=== PATIENT | female | born 1945 | race Caucasian/White ===

== ENCOUNTER 2017-12-18 14:04 | Emergency (ER) | payer OTHER ==
[~2017-12-18] VITALS: Ht 160 cm; Wt 68.0 kg
--- NOTE | ~2017-12-18 | EKG ---
[address] [address] ELECTROCARDIOGRAM REPORT Name: VIRYFERNANDO MATT [id number] Admission: 12/18/17 Attend Phys: Discharge: 12/18/17 Date of : 43 Report #: [id number] THIS REPORT FOR: //name// [facility] ED Test Date: 2017-12-18 Test Time: 14:21:00 Pat Name: FERNANDO BAIRES Department: Room: Gender: F Vice President Education: MZOOK : 1945 Requested By: Bill Kauffman Order Number: [id number] MD: Herson Edward Measurements Intervals [place] Rate: 59 P: 64 [place]: 185 QRS: 71 QRSD: 92 T: 78 QT: 477 QTc: 473 Interpretive Statements Sinus rhythm Compared to ECG 05/07/2015 14:27:49 Sinus bradycardia no longer present Electronically Signed On 12-20-2017 17:29:22 CDT by Herson Edward [email or web address] <ELECTRONICALLY SIGNED> By: Herson Edward MD 12/20/17 1729 1421 142 Herson Edward MD /XU
[~2017-12-18 14:04] MED LIST: ACETAMINOPHEN325 MG PO; ALBUTEROL2.5 MG/0.1 INH; ALBUTEROL2.5 MG/0.5 IH; AMBIEN 5 MG TABL5 M1 PO; AMLODIPINE BESY10 MG PO; ANTACID500 MG PO; ASA81BEC PO; ASPIRIN325 PO; ATIVAN0.5 MG PO; CEPACOL SORE T1 EAC7 PO; COLACE100 MG PO; COZAAR 50 MG TA50 M2 PO; CRESTOR40 MG PO; DEMADEX20 MG PO; DULCOLAX5 MG PO; FENTANYL PA25 MCG/HR TRANSDERM; FERREX 150 FORT1 CAP PO; FLORANEX GRANU1 EACH PO; HYDROCODON-ACE1 EAC5 PO; HYDROCODON-ACE1 EAC7 PO; HYDROCODON-ACE1 EAC8 PO; HYDROCODONE-AP1 EAC6 PO; KLOR-CON M2020 MEQ PO; LASIX 40 MG TAB40 M2 PO; LEVEMIR FL100 UNIT/1 SUBQ; LOMOTIL TABLET1 EACH PO; LOPERAMIDE 2 MG2 M1 PO; LOPERAMIDE2 MG PO; LOSARTAN POTASS50 MG PO; LOSARTAN-HCTZ1 EAC1 PO; MI ACID LIQUID355 ML PO; MILK OF MA400 MG/5 M PO; MIRALAX17 GM PO; MUCINEX600 MG PO; MYLANTA GELCAP1 EACH PO; NORCO 5-325 TA1 EACH PO; NORCO 7.5-3251 EACH PO; NOVOLOG FL100 UNIT/M SUBQ; NOVOLOG100 UNIT/1; NOVOLOG100 UNIT/1 SUBQ; ONDANSETRON HCL4 M3 PO; PACERONE 200 M200 M1 PO; PERCOCET 5-3251 EACH PO; PLAVIX 75 MG TA75 M1 PO; POTASSIUM20 PO; REGLAN 5 MG TAB5 MG PO; SENNA LAXATIVE8.6 MG PO; SENNA8.6 MG PO; TESSALON PERLE100 MG PO; TOPROL XL50 MG PO; TUMS PO; TYLENOL325 MG PO; UNICOMPLEX M TA1 TA1 PO; VANCOCIN 125 M125 M1 PO; VITAMIN D1000 UNI2 PO; ZOFRAN 4 MG ORAL4 MG DISSOLVE; ZOLOFT25 MG PO
[2017-12-18 15:40] LABS: ABSOLUTE NEUTROPHILS 5.8 thou/uL (1.4-8.2); BASOPHILS 0.5 % (0.0-2.0); EOSINOPHILS 0.6 % (0.0-3.0); HEMATOCRIT 37.9 % (37.0-47.0); HEMOGLOBIN 12.6 gm/dL (12.0-15.0); LYMPHOCYTES 9.7 % (24.0-44.0); MCH 30.3 pg (26.0-34.0); MCHC 33.2 g/dL (28.0-37.0); MCV 91.3 fL (80.0-100.0); MONOCYTES 8.3 % (1.0-8.0); PLATELET COUNT 250 thou/uL (150-400); POLYS 80.9 % (36.0-66.0); RBC 4.15 mil/uL (4.20-5.00); WBC 7.2 thou/uL (4.0-11.0)
[2017-12-18 15:49] LABS: CREATININE 1.3 mg/dL (0.6-1.0)
[2017-12-18 15:55] LABS: ALBUMIN 3.5 g/dL (3.4-5.0); TOTAL BILIRUBIN 0.3 mg/dL (<0.1-1.0); TOTAL PROTEIN 6.9 g/dL (6.4-8.2)
[2017-12-18 16:26] LABS: URINE BILIRUBIN NEGATIVE (Negative); URINE BLOOD NEGATIVE (Negative); URINE CLARITY CLEAR; URINE COLOR YELLOW; URINE GLUCOSE-RANDOM* NEGATIVE (Negative); URINE KETONES NEGATIVE (Negative); URINE LEUKOCYTES-REFLEX NEGATIVE (Negative); URINE NITRITE-REFLEX NEGATIVE (Negative); URINE PROTEIN (DIPSTICK) NEGATIVE (Negative); URINE SPECIFIC GRAVITY <= 1.005 (1.005-1.035); URINE UROBILINOGEN 0.2 E.U./dl (0.2-1.0)
== END 2017-12-18 18:28 | disposition home or self-care (01) ==
LOC: ER 14:04
PROVIDERS: Physician Assistant
DX: E11.649 Type 2 diabetes mellitus with hypoglycemia without coma (principal); I48.91 Unspecified atrial fibrillation; E78.5 Hyperlipidemia, unspecified; I11.0 Hypertensive heart disease with heart failure; I50.9 Heart failure, unspecified; I25.10 Atherosclerotic heart disease of native coronary artery without angina pectoris; Z88.5 Allergy status to narcotic agent; Z88.7 Allergy status to serum and vaccine; Z88.8 Allergy status to other drugs, medicaments and biological substances; Z79.4 Long term (current) use of insulin; Z79.899 Other long term (current) drug therapy

== ENCOUNTER 2018-01-08 17:27 | Emergency (ER) | payer OTHER ==
[~2018-01-08] VITALS: Ht 170.2 cm; Wt 81.7 kg
[2018-01-08] MEDS ORDERED: NORCO 5-325 TA1 EACH PO (18:42)
[2018-01-08] MEDS ORDERED: ZPAK PO (18:44)
== END 2018-01-08 19:27 | disposition home or self-care (01) ==
LOC: ER 17:27
DX: S20.212A Contusion of left front wall of thorax, initial encounter (principal); M25.461 Effusion, right knee; S00.83XA Contusion of other part of head, initial encounter; E11.9 Type 2 diabetes mellitus without complications; I48.91 Unspecified atrial fibrillation; F32.9 Major depressive disorder, single episode, unspecified; Z88.7 Allergy status to serum and vaccine; Z91.048 Other nonmedicinal substance allergy status; Z88.5 Allergy status to narcotic agent; Z79.4 Long term (current) use of insulin; W18.39XA Other fall on same level, initial encounter; Y92.89 Other specified places as the place of occurrence of the external cause; Y93.89 Activity, other specified; Y99.8 Other external cause status

== ENCOUNTER 2018-04-02 20:09 | Inpatient (IN) | payer OTHER ==
[~2018-04-02] VITALS: Ht 162.6 cm; Wt 81.3 kg
[~2018-04-02 20:09] MED LIST changes: +ZPAK PO
[2018-04-02 20:11] VITALS: BP 162/110
[2018-04-02 20:33] LABS: ABSOLUTE NEUTROPHILS 6.2 thou/uL (1.4-8.2); BASOPHILS 0.8 % (0.0-2.0); EOSINOPHILS 0.3 % (0.0-3.0); HEMATOCRIT 36.3 % (37.0-47.0); HEMOGLOBIN 12.4 gm/dL (12.0-15.0); MCH 30.7 pg (26.0-34.0); MCV 90.3 fL (80.0-100.0); MONOCYTES 7.4 % (1.0-8.0); PLATELET COUNT 259 thou/uL (150-400); POLYS 80.5 % (36.0-66.0); RBC 4.03 mil/uL (4.20-5.00); RDW 13.5 % (10.5-14.5); WBC 7.7 thou/uL (4.0-11.0)
[2018-04-02 20:40] LABS: ANION GAP 9 mmol/L (7-16); BUN 26 mg/dL (7-18); CALCIUM 8.9 mg/dL (8.5-10.1); CHLORIDE 98 mmol/L (98-107); CO2 25 mmol/L (21-32); CREATININE 1.3 mg/dL (0.6-1.0); GLUCOSE 454 mg/dL (74-106); POTASSIUM 3.8 mmol/L (3.5-5.1); SODIUM 132 mmol/L (136-145)
[2018-04-02 20:47] LABS: APTT 24.1 Seconds (24.5-32.8); PROTIME 10.3 Seconds (9.3-11.4)
[2018-04-02 20:49] LABS: TROPONIN-I <0.06 ng/mL (<0.06)
[2018-04-02] MEDS ORDERED: ZETIA10 MG PO (21:17)
[2018-04-02] MEDS ORDERED: ZOLOFT50 MG PO (21:21)
[2018-04-02 21:34] VITALS: BP 141/48
[2018-04-02 21:47] VITALS: BP 144/51
[2018-04-02] MEDS ORDERED: LEVEMIR SUBQ ×2 (22:13→23:11)
[2018-04-02 22:15] VITALS: BP 133/52
--- NOTE | 2018-04-02 23:05 | NUR ---
PT ARRIVED TO UNIT AT APPROX 2205 WITH BELONGINGS AND FAMILY AT BEDSIDE. PT AOX3, FORGETFUL AT TIMES. VSS, NO C/O PAIN, DENIES CHEST PAIN, BUT STATED CHEST WAS TIGHT. DENIES PAIN RADIATING TO OTHER AREAS. TELE ON, ADMIT STRIP PRINTED AND DOCUMENTED. EDUCATED ON BED CONTROLS. WILL AWAIT AND IMPLEMENT ORDERS. WILL CONTINUE TO MONITOR AND FOLLOW POC.
[2018-04-02] MEDS ORDERED: NAMENDA 10 MG T10 MG PO (23:13)
[2018-04-02] MEDS ORDERED: ARICEPT 5 MG TAB5 MG PO (23:14)
[2018-04-02 23:39] VITALS: BP 133/52
[2018-04-03] VITALS: BP 115/55
--- NOTE | 2018-04-03 02:32 | NUR ---
PT AOX3, FORGETFUL AT TIMES. VSS, DIASTOLIC RAN LOW @ 115/55, FLUIDS ORDERED/IMPLEMENTED. PT C/O HEADACHE, PO PAIN MEDS GIVEN. DENIES CHEST PAIN. O2 SATS WNL ON ROOM AIR. NO S/SX OF CARDIAC OR RESP DISTRESS. NSR ON MONITOR. PT REQUESTED AMBIEN FOR SLEEP, ORDER RECEIVED/IMPLEMENTED. PT CURRENTLY RESTING WELL. WILL CONTINUE TO MONITOR AND FOLLOW POC.
[2018-04-03 03:41] LABS: CALCIUM 8.9 mg/dL (8.5-10.1); CREATININE 1.2 mg/dL (0.6-1.0); POTASSIUM 3.5 mmol/L (3.5-5.1)
[2018-04-03 03:49] LABS: CHOLESTEROL 201 mg/dL (<200); HDL CHOLESTEROL 109 mg/dL (>40); LDL CHOLESTEROL 61 mg/dL (<100); TC:HDL 1.8 Ratio (Not establshd); TRIGLYCERIDE 156 mg/dL (<150); VLDL 31 mg/dL (<40)
[2018-04-03 03:50] LABS: SERUM ASSESSMENT Slight Lipemia
[2018-04-03 05:19] VITALS: BP 152/54
[2018-04-03 07:00] VITALS: BP 139/43
[2018-04-03 11:20] VITALS: BP 119/43
[2018-04-03 15:10] VITALS: BP 139/48
--- NOTE | 2018-04-03 16:22 | NUR ---
VSS REMAINS SB 50'S, LUNGS CLEAR, RA SAT IS 98%. UP IN ROOM WITHOUT C/O CHEST PAIN. PT AWARE NPO PAST MN FOR CATH IN AM. WILL CONTINUE TO MONITER AND CARE FOR PT PER PLAN OF CARE
[2018-04-03 19:21] VITALS: BP 131/52
--- NOTE | 2018-04-03 22:00 | EKG ---
[address] [address] ELECTROCARDIOGRAM REPORT Name: FERNANDO BAIRES Room #: 201-P ADM IN M.R.#: [id number] Admission: 04/02/18 Attend Phys: Josh Leggett MD Discharge: Date of : 43 Report #: [id number] THIS REPORT FOR: //name// [facility] ED Test Date: 2018-04-02 Test Time: 20:10:21 Pat Name: FERNANDO BAIRES Department: Room: 201 Gender: F Senior Network Security Engineer: SHOSHANA : 1945 Requested By: Carson Sotelo Order Number: [id number] MD: Herson Edward Measurements Intervals [place] Rate: 68 P: 29 DC: 187 QRS: 71 QRSD: 104 T: 66 QT: 436 QTc: 464 Interpretive Statements Sinus rhythm Anteroseptal infarct, age indeterminate Compared to ECG 12/18/2017 14:21:00 Myocardial infarct finding now present Electronically Signed On 04-03-2018 21:59:47 TELEPHONE ENGINEER by Herson Edward [email or web address] <ELECTRONICALLY SIGNED> By: Herson Edward MD 04/03/18 2159 09 09 Herson Edward MD /XU
--- NOTE | 2018-04-03 22:02 | EKG ---
[address] [address] ELECTROCARDIOGRAM REPORT Name: FERNANDO BAIRES MATT Room #: 201-P ADM IN M.R.#: [id number] Admission: 04/02/18 Attend Phys: Josh Leggett MD Discharge: Date of : 43 Report #: [id number] THIS REPORT FOR: //name// [facility] Test Date: 2018-04-03 Test Time: 04:31:31 Pat Name: FERNANDO BAIRES Department: Room: 201 P Gender: F Wellness Assistant: arminda chow : 1945 Requested By: Sherin Fisher Order Number: [id number] MD: Herson Edward Measurements Intervals [place] Rate: 62 P: 72 [place]: 204 QRS: 76 QRSD: 90 T: 51 QT: 476 QTc: 484 Interpretive Statements Sinus rhythm Compared to ECG 12/18/2017 14:21:00 No significant changes Electronically Signed On 04-03-2018 22:02:04 WINE BOTTLE INSPECTOR by Herson Edward [email or web address] <ELECTRONICALLY SIGNED> By: Herson Edward MD 04/03/18 2202 430 0 Herson Edward MD /XU
[2018-04-04 01:50] VITALS: BP 131/52
--- NOTE | 2018-04-04 01:53 | NUR ---
ASSUMED PT CARE AT 1900. PT A/OX4, SOMETIMES FORGETFUL. VITAL SIGNS STABLE, ASSESSMENT CHARTED. NO COMPLAINTS OF PAIN OR CHESTPAIN. PT ABLE TO AMBULATE TO BATHROOM WITH WALKER, SBA. TOLERATED ACTIVITY WELL. PT COMPLAINED OF SOME ANXIETY ABOUT PROCEDURE IN AM. PATIENTS TRANSPORTER WAS INFORMED, ORDERS RECIEVED. PT RESTING WELL. REPORT GIVEN TO ON COMING NURSE ABOUT 0100. CONTINUE TO MONITOR.
[2018-04-04 03:56] LABS: CALCIUM 8.8 mg/dL (8.5-10.1); CREATININE 1.3 mg/dL (0.6-1.0)
[2018-04-04 03:58] VITALS: BP 111/93
[2018-04-04 07:05] VITALS: BP 144/40
--- NOTE | 2018-04-04 07:46 | NUR ---
Assumed care of pt at about 2330 04/04/18. Pt a/o x 4. RA. VSS. SR. Loss of IV access before assuming care of this pt. Per previous nurse, multiple attempts to start a new IV by multiple nurses, unsuccessful. Attempted new IV access by this nurse as well, unsuccessful, either. Incoming day shift RN and labels molder personnel notified of no IV access. Consent signed, labels molder check list completed. Family and labels molder personnel present in pt room. Pt resting in bed comfortably. No apparent distress noted. Bedside report complete.
--- NOTE | 2018-04-04 08:05 | NUR ---
ASSUMED PATIENT CARE THIS AM. PATIENT OFF UNIT TO LABORER COOK HOUSE AROUND 0715.
[2018-04-04 10:40] VITALS: BP 135/54
[2018-04-04 12:00] VITALS: BP 150/53
--- NOTE | 2018-04-04 12:29 | 2DMMODE ---
[facility] [place] [place] [address] 2 D/M-MODE ECHOCARDIOGRAM Name: VIRYFERNANDO MATT Room #: 201-P ADM IN M.R.#: [id number] Admission: 04/02/18 Attend Phys: Nicol Plasencia MD Discharge: Date of : 43 Date of Service: 04/04/18 1228 Report #: [id number] THIS REPORT FOR: //name// APPROVED REPORT Study performed: 04/04/2018 11:32:20 EXAM: Comprehensive 2D, Doppler, and color-flow Echocardiogram Patient Location: Bedside Room #: 201 Status: routine BSA: 1.87 HR: 54 bpm BP: 111/93 mmHg Rhythm: NSR Other Information Study Quality: Technically Limited/not all measurements and doppler taken. No apical window. Technically limited study due to breast implants. Indications Chest pain, short of breath, status post PCI. Hx: CABG, COPD, HTN, DM, PVD. 2D Dimensions IVSd: 9.05 (7-11mm) LVOT Diam: 19.63 (18-24mm) LVDd: 37.84 mm PWd: 9.42 (7-11mm) LVDs: 27.03 (25-40mm) Aortic Root: 30.46 mm Aortic Valve AoV Peak Elijah.: 1.54 m/s AO Peak Gr.: 9.52 mmHg LVOT Max P.51 mmHg LVOT Max V: 0.79 m/s ANH Vmax: 1.55 cm2 Mitral Valve E/A Ratio: 0.7 MV Decel. Time: 232.63 ms MV E Max Elijah.: 0.37 m/s MV A Elijah.: 0.56 m/s MV PHT: 67.46 ms [facility] [address] [place] [address] 2 D/M-MODE ECHOCARDIOGRAM Name: FERNANDO BAIRES MATT Room #: 201-P [facility] IN ..#: [id number] Admission: 04/02/18 Attend Phys: Nicol Plasencia MD Discharge: Date of : 43 Date of Service: 04/04/18 1228 Report #: [id number] Pulmonary Valve PV Peak Elijah.: 1.03 m/s PV Peak Gr.: 4.20 mmHg Tricuspid Valve TR Peak Elijah.: 2.10 m/s RAP Estimate: 5.00 mmHg TR Peak Gr.: 17.70 mmHg PA Pressure: 23.00 mmHg Left Ventricle The left ventricle is normal size. Visualized wall motion is grossly normal. There is normal left ventricular wall thickness. Left ventricular systolic function is normal. LVEF is 60%. Mild diastolic dysfunction is present (impaired relaxation pattern). Right Ventricle The right ventricle is normal size. The right ventricular systolic function is normal. Atria The left atrium size is normal. The right atrium size is normal. Aortic Valve The Aortic valve is sclerotic. No aortic regurgitation is present. There is no aortic valvular stenosis. Mitral Valve The mitral valve is normal in structure. There is no mitral valve regurgitation noted. Tricuspid Valve The tricuspid valve is normal in structure. Trace tricuspid regurgitation. Estimated PAP is 20-25mmHg. Pulmonic Valve The pulmonary valve is normal in structure. Trace pulmonic regurgitation. Great Vessels The aortic root is normal in size. The ascending aorta is normal in size. IVC is normal in size and collapses >50% with inspiration. Pericardium There is no pericardial effusion. [facility] [place] [address] 2 D/M-MODE ECHOCARDIOGRAM Name: FERNANDO BAIRES MATT Room #: 201-P ADM IN M.R.#: [id number] Admission: 04/02/18 Attend Phys: Nicol Plasencia MD Discharge: Date of : 43 Date of Service: 04/04/18 1228 Report #: [id number] <Conclusion> The left ventricle is normal size. There is normal left ventricular wall thickness. Left ventricular systolic function is normal. Mild diastolic dysfunction is present (impaired relaxation pattern). The right ventricle is normal size. The left atrium size is normal. The Aortic valve is sclerotic. There is no mitral valve regurgitation noted. Trace tricuspid regurgitation. Estimated PAP is 20-25mmHg. <ELECTRONICALLY SIGNED> By: Isidro Jefferson MD 04/04/18 1228 1228 1228 Isidro Jefferson MD /INF
[2018-04-04 15:05] VITALS: BP 140/44
--- NOTE | 2018-04-04 16:30 | NUR ---
ASSUMED PATIENT CARE FROM COMMUNITY ORGANIZATION WORKER AROUND 1030. PATIENT LYING IN BED, A&O. ROOM AIR. PATIENT HAS SOME CONFUSION AT TIMES, KNOWN HISTORY OF DEMENTIA. FALL RISK. PATIENT ON BEDREST UNTIL 1330. PATIENT UP TO BATHROOM AFTER BED REST, STEADY GAIT. TOLERATING DIET. RIGHT GROIN SITE, C/D/I. VSS. SEE FLOW SHEET IN CHART.
--- NOTE | 2018-04-04 17:02 | NUR ---
Met with patient she resides at [facility]. She has a walker she uses for ambulation. She has a wc but does not need. Sp with Crystal at [facility] and updated facility. Possible dc in am they are aware. Therapy evals in process casemgt following.
--- NOTE | 2018-04-04 23:15 | NUR ---
pt post cardiac cath. pt woke up 2300 c/o anxiety. AO X 2. and teary pt states, " why does this keep happening". nurse reoriented pt but pt was still teary. Ativan 0.5 mg. will keep monitoring patient. no other complaints reported.
[2018-04-05 02:57] LABS: HEMATOCRIT 34.4 % (37.0-47.0); HEMOGLOBIN 11.4 gm/dL (12.0-15.0); MCV 90.9 fL (80.0-100.0); RBC 3.79 mil/uL (4.20-5.00); RDW 13.8 % (10.5-14.5); WBC 5.8 thou/uL (4.0-11.0)
[2018-04-05 03:20] LABS: CALCIUM 8.2 mg/dL (8.5-10.1); CREATININE 1.3 mg/dL (0.6-1.0); POTASSIUM 3.3 mmol/L (3.5-5.1); TROPONIN-I 0.1 ng/mL (<0.06)
[2018-04-05 04:45] VITALS: BP 122/47
[2018-04-05 07:05] VITALS: BP 122/55
--- NOTE | 2018-04-05 08:02 | EKG ---
[address] [place] [address] ELECTROCARDIOGRAM REPORT Name: FERNANDO BAIRES Room #: 201-P ADM IN M.R.#: [id number] Admission: 04/02/18 Attend Phys: Nicol Plasencia MD Discharge: Date of : 43 Report #: [id number] THIS REPORT FOR: //name// [facility] Test Date: 2018-04-05 Test Time: 07:07:34 Pat Name: FERNANDO BAIRES Department: Room: 201 P Gender: F Convention Worker: LATISHA : 1945 Requested By: Amy Alvarez Order Number: [id number] MD: Robert Vora Measurements Intervals [place] Rate: 63 P: 70 [place]: 176 QRS: 80 QRSD: 96 T: 65 QT: 462 QTc: 474 Interpretive Statements Sinus rhythm Nonspecific ST segment abnormality Compared to ECG 04/03/2018 04:31:31 No significant changes Electronically Signed On 04-05-2018 8:01:54 CORPORATE COMPLIANCE DIRECTOR by Robert Vora [email or web address] <ELECTRONICALLY SIGNED> By: Robert Vora MD, [facility] 04/05/18800 6 6 Robert Vora MD, FACC /EPI
[2018-04-05 11:10] VITALS: BP 135/46
[2018-04-05] MEDS ORDERED: ADULT LOW DOSE81 MG PO (12:43)
[2018-04-05] MEDS ORDERED: PEPCID20 MG PO (12:43)
[2018-04-05] MEDS ORDERED: IBUPROFEN 400400 M2 PO (12:43)
--- NOTE | 2018-04-05 13:18 | NUR ---
ASSUMED PATIENT CARE THIS AM. PATIENT LYING IN BED, A&OX4. ROOM AIR. PATIENT HAS SOME CONFUSION AT TIMES RELATED TO HER DEMENTIA. PATIENT UP WITH WALKER, STEADY GAIT. PLAN TO DISCHARGE HOME WITH BROTHER BACK TO FACILITY. REPORT GIVEN TO
--- NOTE | 2018-04-05 13:52 | NUR ---
patient to dc today to [facility]. sp with RN at [facility] to alert of dc. RN gave report. Chart copied. Orders faxed by dc business continuity planner. family to transport no further needs
--- NOTE | 2018-04-05 14:47 | NUR ---
PT. DISCHARGING TODAY TO [facility]. [facility] WILL FOLLOW WITH HH SPOKE WITH [facility] AND THEY WILL NOTIFY PT. OF TIME OF VISITS. FAXED DD ORDERS/SUMMARY TO [facility] AND SPOKE WITH SHARON IN ADM. AND THEY RECEIVED DC ORDERS. FAMILY WILL TRANSPORT PT. TO FACILITY.
--- NOTE | 2018-04-06 11:16 | CATHLAB ---
[facility] [address] [place] [address] INVASIVE PROCEDURE REPORT Name: FERNANDO BAIRES Room #: 201-P DIS IN ..#: [id number] Admission: 04/02/18 Attend Phys: Nicol Plasencia MD Discharge: 04/05/18 Date of : 43 Date of Service: 04/06/18 1115 Report #: [id number] THIS REPORT FOR: //name// APPROVED REPORT Study performed: 04/04/2018 07:26:08 Patient Details Patient Status: In-Patient Room #: The patient is a 73 year-old female Event Personnel Mark Pandya Foot Roentgenologist, Wilbur Phoenix RN, Daphne Chadwick Monitor, Brandee Velez RTR, CRYPTOLOGIC TECHNICIAN TECHNICAL Scrub Procedures Performed Art Access - R femoral artery* 10622 Initial Mod Sed Same Phys/QHP Gr5y 480101 63035 Mod Sed Same Phys/QHP Ea 146404 Left Heart Cath Coronaries, Bypass Grafts 6379946 LHCCORCABG Aortogram Abdominal Peripheral Angio 860766 BRENNEN Place w/wo Plasty Single Left Main 623214 Left Subclavian Angio Hemostasis w/ Mynx Indication Chest pain Procedure Narrative The patient was brought urgently to the Cardiac Catheterization Laboratory and was prepped and draped in a sterile manner. The Right Groin^ was infiltrated with 1% Lidocaine subcutaneous anesthesia. A PINNACLE 6FR Sheath #[id number] sheath was inserted into the RFA^. Coronary angiography was performed using coronary diagnostic catheters. The right coronary system was accessed and visualized with a JR 4 catheter. The left coronary system was accessed and visualized with a JL 4 catheter. The left ventricle was accessed and visualized with a Pigtail catheter. Left ventriculogram was performed in KHAN projection. An aortogram of the abdominal aorta was performed. Closure device was deployed with a 6 Fr Mynx. The patient tolerated the procedure well and there were no complications associated with the procedure. There was no hematoma. Intraoperative Conscious Sedation Sedation start time: 08:37 Case end Time: 10:08 Fentanyl 75 mcg Versed [address] [address] INVASIVE PROCEDURE REPORT Name: FERNANDO BAIRES MATT Room #: 201-P [facility] IN ..#: [id number] Admission: 04/02/18 Attend Phys: Nicol Plasencia MD Discharge: 04/05/18 Date of : 43 Date of Service: 04/06/18 1115 Report #: [id number] Fluoro Time: 26.30 minutes Dose: DAP 05607.00 cGycm2 2448 mGy Contrast Type and Amount: Visipaque 315 ml IVUS Findings Sprinter OTW 2.75 x 12 #[id number] Hemodynamics The aortic pressure is 162/58 mmHg with a mean of 96 mmHg. The left ventricular pressure is 152/8 mmHg with a mean of mmHg. The left ventricular end diastolic pressure is 19 mmHg. PCI Technique Lesion Percutaneous coronary intervention was performed on the LM. A 6FR LAUNCHER EBU 3.0 #[id number] Guide Catheter was used to engage the ostium. A Luge Wire .014 x 182CM #[id number] Interventional Guidewire was used to cross the lesion. BALLOON DILATION A Balloon catheter Sprinter OTW 2.5 x 12 #[id number] was inserted and inflated up to 16.00atm for 26seconds. STENT DEPLOYMENT A drug-eluting stent RESOLUTE JENNIFER OTW 2.75 X 8 #[id number] was inserted and inflated up to 18.00atm for 39seconds. POST STENT DEPLOYMENT BALLOON DILATION A Balloon catheter TREK NC OTW 3.0 X 12 #[id number] was inserted and inflated up to 22.00atm for 65seconds. BALLOON DILATION A Balloon catheter Sprinter OTW 2.75 x 12 #[id number] was inserted and inflated up to 14.00atm for 28seconds. Additional Inflation: 18.00atm for 36seconds. Conclusion #1 successful PTCA stent of the high-grade left main lesion processes protected) filling a circumflex OM system and diagonal branch. Placement of a 2.75 x 8 resolute postdilated 3.2 mm in size RADHA-3 grade 3 flow #2 LAD is proximally occluded #3 ALMANZAR to LAD is intact there is a ostial proximal ALMANZAR 50% lesion otherwise well-preserved filling a preserved LAD. There was no retrograde flow into the diagonal system which is now being filled via the left main intervention. #4 SVG to OM is widely patent filling a an extensive circumflex OM [facility] [address] [place] [address] INVASIVE PROCEDURE REPORT Name: FERNANDO BAIRES Room #: 201-P DIS IN M.R.#: [id number] Admission: 04/02/18 Attend Phys: Nicol Plasencia MD Discharge: 04/05/18 Date of : 43 Date of Service: 04/06/18 1115 Report #: [id number] system. Now being filled via the eek system through the left main intervention in addition. #5 eek right is occluded nondominant vessel it appears #6 SVG to an acute marginal branch off of the right not supplying significant myocardium it is widely patent #7 normal left ventricular size and systolic function EF 60% #8 abdominal aortogram showing a mildly ectatic aortic aneurysm which is small bilateral iliac stents appear to be patent. Renal arteries are patent. 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 Recommendations and plan continue aggressive risk factor modification. We'll follow post coronary stent protocol. Dual antiplatelet therapy. <ELECTRONICALLY SIGNED> By: Mark Pandya MD, [facility] 04/06/18 1115 1115 14 Mark Pandya MD, FACC /INF
== END 2018-04-05 13:36 | disposition home health service (06) | DRG 246 ==
LOC: ER 20:09 → 2N 21:14 → EROBS 21:14 → 2N 21:55
PROVIDERS: Internal Medicine Cardiovascular Disease; Nurse Practitioner Family; Nurse Practitioner Gerontology; Physician Assistant; ADMIT Internal Medicine
PROC: B215YZZ Fluoroscopy of Left Heart using Other Contrast (ICD-10-PCS; principal; 2018-04-04)
PROC: 4A023N7 Measurement of Cardiac Sampling and Pressure, Left Heart, Percutaneous Approach (ICD-10-PCS; principal; 2018-04-04)
PROC: B218YZZ Fluoroscopy of Left Internal Mammary Bypass Graft using Other Contrast (ICD-10-PCS; principal; 2018-04-04)
PROC: B211YZZ Fluoroscopy of Multiple Coronary Arteries using Other Contrast (ICD-10-PCS; principal; 2018-04-04)
PROC: B410YZZ Fluoroscopy of Abdominal Aorta using Other Contrast (ICD-10-PCS; principal; 2018-04-04)
PROC: B213YZZ Fluoroscopy of Multiple Coronary Artery Bypass Grafts using Other Contrast (ICD-10-PCS; principal; 2018-04-04)
PROC: 027034Z Dilation of Coronary Artery, One Artery with Drug-eluting Intraluminal Device, Percutaneous Approach (ICD-10-PCS; principal; 2018-04-04)
PROC: B312YZZ Fluoroscopy of Left Subclavian Artery using Other Contrast (ICD-10-PCS; principal; 2018-04-04)
DX: I25.110 Atherosclerotic heart disease of native coronary artery with unstable angina pectoris (principal); E43 Unspecified severe protein-calorie malnutrition; T82.856A Stenosis of peripheral vascular stent, initial encounter; E11.51 Type 2 diabetes mellitus with diabetic peripheral angiopathy without gangrene; F03.90 Unspecified dementia, unspecified severity, without behavioral disturbance, psychotic disturbance, mood disturbance, and anxiety; E78.5 Hyperlipidemia, unspecified; I65.22 Occlusion and stenosis of left carotid artery; N18.9 Chronic kidney disease, unspecified; I12.9 Hypertensive chronic kidney disease with stage 1 through stage 4 chronic kidney disease, or unspecified chronic kidney disease; I48.0 Paroxysmal atrial fibrillation; E78.00 Pure hypercholesterolemia, unspecified; J44.9 Chronic obstructive pulmonary disease, unspecified; E11.22 Type 2 diabetes mellitus with diabetic chronic kidney disease; F41.9 Anxiety disorder, unspecified; Y83.8 Other surgical procedures as the cause of abnormal reaction of the patient, or of later complication, without mention of misadventure at the time of the procedure; F32.9 Major depressive disorder, single episode, unspecified; Z88.6 Allergy status to analgesic agent; Z88.7 Allergy status to serum and vaccine; Z91.048 Other nonmedicinal substance allergy status; Z95.1 Presence of aortocoronary bypass graft; Z79.4 Long term (current) use of insulin; Z79.82 Long term (current) use of aspirin; Z79.899 Other long term (current) drug therapy; Z87.891 Personal history of nicotine dependence; Z79.02 Long term (current) use of antithrombotics/antiplatelets; Z90.710 Acquired absence of both cervix and uterus; Z90.10 Acquired absence of unspecified breast and nipple; Y92.89 Other specified places as the place of occurrence of the external cause; Z68.30 Body mass index [BMI] 30.0-30.9, adult
CPT/HCPCS: 10081

== ENCOUNTER 2018-11-17 18:24 | Inpatient (IN) | payer OTHER ==
[~2018-11-17] VITALS: Ht 188 cm; Wt 81.6 kg
--- NOTE | ~2018-11-17 | EMS ---
[address] [address] EMS Patient Care Report Name: FERNANDO BAIRES Room #: 216-P [facility] IN M.R.#: [id number] Admission: 11/17/18 Attend Phys: Vladimir Olivares MD Discharge: 11/19/18 Date of : 43 Report #: [id number] THIS REPORT FOR: //name// Report Transmitted: 11/21/2018 13:[address] [facility] MED-ACT Incident [id number] @ 11/17/2018 17:33 Incident Location [address] [place] [address] Patient FERNANDO BAIRES Female, 73 Years 1945 Patient Address [address] [place] [address] Patient History Diabetes,Coronary Artery Bypass Graft (CABG), Patient Allergies Tetanus Toxoid Vaccine, Patient Medications Amiodarone, ASA, Rosuvastatin, Furosemide, Losartan, Novolog, Chief Complaint "she passed out" Disposition Transported No Lights/[place] Dispatch Reason Unconscious/Fainting Transported To [facility] Narrative EMS dispatched to a local assisted living facility for a female patient. Upon arrival, EMS finds the pt in the nurses office on the floor, in the right lateral position. The patient is tracking but has obvious vomit in a bedpan [address] [address] EMS Patient Care Report Name: FERNANDO BAIRES Room #: 216-P DIS IN M.R.#: [id number] Admission: 11/17/18 Attend Phys: Vladimir Olivares MD Discharge: 11/19/18 Date of : 43 Report #: [id number] next to her. The staffing executive relays the patient was there to get pain medication for a tooth extraction earlier when "She had a syncopal episode". At that time, they pulled her down to the floor, checked a blood glucose, and when the reading came back "80" they state "we gave her glucagon, because, just in case". Upon EMS arrival, the patient relays her shoulder hurts very bad but does not remember what happened. In addition, the patient denies: neck pain, back pain, chest pain, shortness of breath, weakness on one side as opposed to another, recent trauma prior to or after incident. Initial assessment is performed on pt. She is rolled to a sheet where lifted by multiple care providers to cot where secured with shoulder straps. The patient is moved to MICU where secured. Secondary assessment. IV access is tried but due to poor vascular access one is not able to be obtained. Fentanyl is given IN, 12lead is performed. Continuous assessment is preformed on pt with vitals. Upon arrival to hospital, report is given to RN, the patient is moved to hospital bed via sheet drag. care is transferred without incident. Initial Vitals @17:49P: 63,Pain: 8/10,KS Suspected: false @17:39P: 62,R: 16,BP: 120/53,Pain: 10/10,GCS: 15,Glucose: 150,SpO2: 100,Revised Trauma: 12,KS Suspected: false @18:06P: 61,R: 16,BP: 103/66,Pain: 6/10,GCS: 15,SpO2: 100,Revised Trauma: 12, Assessments @18:15MENTAL:Person Oriented,Time Oriented,Place Oriented,Event Oriented,SKIN:HEENT:Head/Face: No Abnormalities,Neck/Airway: No Abnormalities,LUNG SOUNDS:ABDOMEN:PELVIS//GI:EXTREMITIES:PULSE:NEURO: Impression Syncope / Fainting Procedures @17:57Saline Lock 5cc (22 ga) Site: Hand-LeftResponse: UnchangedFailed@18:00 0cc (22 ga) Site: Hand-LeftResponse: UnchangedFailed@17:4912-Lead ECGResponse: UnchangedSucceeded@18:02Fentanyl - 100 Micrograms (mcg) - Intravenous (IV)Response: Improved Timeline 17:33,Call Received 17:33,Psap Call 17:33,Dispatched 17:34,En Route 17:37,On Scene 17:38,At Patient 17:39,BP: 120/53 M,PULSE: 62,RR: 16 R,SPO2: 100 Ox,ETCO2: ,B,PAIN: [address] [address] EMS Patient Care Report Name: FERNANDO BAIRES MATT Room #: 216-P DIS IN M.R.#: [id number] Admission: 11/17/18 Attend Phys: Vladimir Olivares MD Discharge: 11/19/18 Date of : 43 Report #: [id number],GCS: 15, 17:49,12-Lead ECG,Response: UnchangedSucceeded, 17:49,BP: / M,PULSE: 63,RR: R,SPO2: Ox,ETCO2: ,BG: ,PAIN: 8,GCS: , 17:57,Saline Lock 5cc 22 ga Site: Hand-Left,Response: UnchangedFailed, 18:00, 0cc 22 ga Site: Hand-Left,Response: UnchangedFailed, 18:02,Fentanyl - 100 Micrograms (mcg) - Intravenous (IV),Response: Improved 18:03,Depart Scene 18:06,BP: 103/66 M,PULSE: 61,RR: 16 R,SPO2: 100 Ox,ETCO2: ,BG: ,PAIN: 6,GCS: 15, 18:18,At Destination 18:50,Call Closed Disclaimer v1.1 Copyright 2019 [employer] This EMS Care Summary contains data elements from the applicable legal record (which may be displayed differently). It is designed to provide pertinent information for the following purposes: continuity of care, clinical quality, and state data reporting. The complete legal record is available to ED staff and administrators of the receiving hospital in [employer] Patient Tracker. All data is provided "as is."
[2018-11-17 18:24] VITALS: BP 116/38
[~2018-11-17 18:24] MED LIST changes: +ADULT LOW DOSE81 MG PO; +ARICEPT 5 MG TAB5 MG PO; +IBUPROFEN 400400 M2 PO; +LEVEMIR SUBQ; +NAMENDA 10 MG T10 MG PO; +PEPCID20 MG PO; +ZETIA10 MG PO; +ZOLOFT50 MG PO
[2018-11-17 20:09] LABS: ABSOLUTE NEUTROPHILS 8.1 thou/uL (1.4-8.2); BASOPHILS 0.4 % (0.0-2.0); EOSINOPHILS 1.2 % (0.0-3.0); HEMATOCRIT 39.7 % (37.0-47.0); HEMOGLOBIN 13.3 gm/dL (12.0-15.0); LYMPHOCYTES 8.5 % (24.0-44.0); MCH 30.4 pg (26.0-34.0); MCHC 33.5 g/dL (28.0-37.0); MCV 90.8 fL (80.0-100.0); MONOCYTES 10.4 % (1.0-8.0); PLATELET COUNT 267 thou/uL (150-400); POLYS 79.5 % (36.0-66.0); RBC 4.37 mil/uL (4.20-5.00); RDW 14.1 % (10.5-14.5); WBC 10.2 thou/uL (4.0-11.0)
[2018-11-17 20:16] LABS: ANION GAP 8 mmol/L (7-16); BUN 26 mg/dL (7-18); CALCIUM 9.2 mg/dL (8.5-10.1); CHLORIDE 98 mmol/L (98-107); CO2 31 mmol/L (21-32); CREATININE 1.5 mg/dL (0.6-1.0); GLUCOSE 235 mg/dL (74-106); POTASSIUM 3.9 mmol/L (3.5-5.1); SODIUM 137 mmol/L (136-145)
[2018-11-17 20:25] LABS: TROPONIN-I <0.06 ng/mL (<0.06)
[2018-11-17 22:27] VITALS: BP 160/40
[2018-11-17 22:46] VITALS: BP 131/41
[2018-11-17 23:03] VITALS: BP 147/56
[2018-11-18] VITALS (9 sets, daily range): BP systolic 101–157; BP diastolic 29–70
[2018-11-18] MEDS ORDERED: MIRALAX17 GM PO (00:17)
[2018-11-18] MEDS ORDERED: GLUCAGON EMERGEN1 MG IM (00:18)
[2018-11-18] MEDS ORDERED: CYCLOBENZAPRINE5 MG PO (01:08)
[2018-11-18] MEDS ORDERED: ALPRAZOLAM 0.0.25 M1 PO (01:08)
[2018-11-18] MEDS ORDERED: BONIVA150 MG PO (01:10)
[2018-11-18] MEDS ORDERED: CITRACAL SOFT1 EACH PO (01:13)
[2018-11-18] MEDS ORDERED: VITAMIN D250000 UNIT PO (01:20)
--- NOTE | 2018-11-18 03:49 | NUR ---
PT. ARRIVED TO FLOOR AROUND 2330; PT. AOX4; C/O R. SHOULDER PAIN; 12/06; ST. PAIN MEDICATION GIVEN IN THE ER DID NOT HELP MUCH WITH PAIN; VS WNL; ST. HAVING HX OF DEMENTIA; ABLE TO KNOW THE DAY; PLACE; & SITUATION; ADMISSION PERFORMED; PRN PAIN MEDICATION REQUESTED; MEDICATION GIVEN; PAIN RE-ASSESSMENT PT. DID NOT HAVE PAIN RELIEVED; AIRPLANE ELECTRICAL REPAIRER NOTIFIED; ORDERS RECEIVED; BS ABOVE 200s; INSULING GIVEN; IV PRN PAIN MEDICATION GIVEN; PAIN RE-ASSESSMENT PT. RESTING WITH EYES CLOSED; DAUGHTER CALLED AROUND MIDNIGHT ST. PT. HAS HX OF DEMENTIA; LOW PAIN TOLORANCE; HX OF HAVING SHOULDER FRACTURE YEARS AGO; PER PT'S DAUGHTER; PT. DID NOT FALL; PT. WAS ASSISSTED TO FLOOR; PT. DID NOT HIT HER SHOULDER WHEN BEING ASSISSTED TO FLOOR; PT. WAS C/O SHOULDER PAIN ON 11/16/18; AFTER LOOSING CONCSCIOUSNESS PT. RECEIVED GLUCAGON; AIRPLANE ELECTRICAL REPAIRER NOTIFIED; DAUGHTER IS POA; ASSESSMENT CHARGED; FOLLOWING POC; WILL PASS ON REPORT.
[2018-11-18 05:45] LABS: HEMATOCRIT 40.1 % (37.0-47.0); HEMOGLOBIN 13.3 gm/dL (12.0-15.0); MCH 30.6 pg (26.0-34.0); MCHC 33.2 g/dL (28.0-37.0); MCV 92.3 fL (80.0-100.0); RBC 4.34 mil/uL (4.20-5.00); RDW 14.3 % (10.5-14.5); WBC 5.9 thou/uL (4.0-11.0)
[2018-11-18 06:06] LABS: ALBUMIN 3.3 g/dL (3.4-5.0); CREATININE 1.3 mg/dL (0.6-1.0); POTASSIUM 4.4 mmol/L (3.5-5.1); TOTAL BILIRUBIN 0.5 mg/dL (<0.1-1.0)
[2018-11-18 06:22] LABS: CALCIUM 8.9 mg/dL (8.5-10.1)
--- NOTE | 2018-11-18 14:11 | EKG ---
[address] [place] [address] ELECTROCARDIOGRAM REPORT Name: FERNANDO BAIRES Room #: 216-P ADM IN M.R.#: [id number] Admission: 11/17/18 Attend Phys: Vladimir Olivares MD Discharge: Date of : 43 Report #: [id number] THIS REPORT FOR: //name// [facility] ED Test Date: 2018-11-17 Test Time: 18:39:26 Pat Name: FERNANDO BAIRES Department: Room: 216 Gender: F [employer] Products Assembler: MAXINE : 1945 Requested By: Panfilo Garcia Order Number: [id number] MD: Robert Vora Measurements Intervals [place] Rate: 59 P: 66 DC: 185 QRS: 72 QRSD: 97 T: 82 QT: 485 QTc: 481 Interpretive Statements Sinus rhythm Nonspecific ST and T wave abnormality Compared to ECG 04/05/2018 07:07:34 Nonspecific change in the ST and T-wave segments Electronically Signed On 11-18-2018 14:11:03 CDT by Robert Vora [email or web address] <ELECTRONICALLY SIGNED> By: Robert Vora MD, [facility] 11/18/18 1411 1839 1839 Robert Vora MD, [facility] /EPI
--- NOTE | 2018-11-18 14:25 | NUR ---
Case opened to follow for dc planning. Pt is a resident at [facility]. She was able to gait with a rwalker and has some support for meds/meals/adl's. Her dtr Alannah is her dpoa and she lives a couple of hours from . She will be driving in this evening to check on the pt and take her back to [place] [facility] [place]. She is receptive to hh f/u there and she has had it before through [facility] and [facility]. Pt's dtr denies preference. [facility] alerted to possible wkend hh referral. PT/OT evals requested. Nursing reports the pt has continued c/o pain. Xrays negative for fracture. Pt is forgetful and needs reminders. Alannah is open to snf referral if recommended but is hopeful the pt can return directly to the [facility] with HH therapy. Possible weekend dc. [facility] and [facility] will both need to be notifed and her dc instructions and summary faxed. [facility] [phone], fax [phone], [facility] [phone], fax [phone]. .
--- NOTE | 2018-11-18 15:45 | HC ---
[facility] [place] [address] CONSULTATION Name: FERNANDO BAIRES Room #: 216-P ADM IN M.R.#: [id number] Admission: 11/17/18 Attend Phys: Vladimir Olivares MD Discharge: Date of : 43 Report #: [id number] THIS REPORT FOR: //name// CC: Ramon Olivares INDICATION: Syncope. HISTORY OF PRESENT ILLNESS: This is a 73-year-old female followed by Dr. Mark Pandya. She has a prior history of CABG, PCI, peripheral vascular disease, diabetes mellitus, hypertension, dementia, COPD, osteoporosis and gait instability. The patient resides at an assisted living facility. Yesterday morning, she went to the dentist, had a tooth removed. Back at the facility, she was walking to the nursing station to get her fingerstick checked. She uses a walker for assistance with ambulation. She sat down and apparently passed out. She cannot recall any of the details surrounding the event. She denies any chest pain or shortness of breath. It is unclear if her sugars were low. The patient denies any symptoms of exertional angina, dyspnea, lightheadedness, palpitations, or congestion. There is no recent history of fever or chills. PAST MEDICAL HISTORY: History of coronary artery bypass graft with recent stent placement to the left main filling OM and diagonal arteries in 03/2018. Patent ALMANZAR to the LAD. History of left subclavian artery stent, carotid artery disease, COPD, dementia, hypertension, diabetes mellitus, spinal stenosis, hypercholesterolemia. ALLERGIES: TETANUS, MORPHINE. CURRENT MEDICATIONS: Please see the MAR for full list of medications. SOCIAL HISTORY: Denies tobacco use. FAMILY HISTORY: Negative for premature CAD. REVIEW OF SYSTEMS: A full 10-point review of systems performed. Only the pertinent positives and negatives are described in the HPI. PHYSICAL EXAMINATION: VITAL SIGNS: Blood pressure is 110/60, heart rate is 70 beats per minute. GENERAL APPEARANCE: An elderly appearing female in no acute distress. HEENT: Normocephalic, atraumatic. Oral mucosa moist. NECK: Supple. LUNGS: Clear to auscultation. CARDIAC: Regular rate and rhythm, S1, S2 positive. ABDOMEN: Soft, nontender. EXTREMITIES: Trace edema, no cyanosis. [facility] [address] [place] [address] CONSULTATION Name: FERNANDO BAIRES [facility] Room #: 216-P [facility] IN M.R.#: [id number] Admission: 11/17/18 Attend Phys: Vladimir Olivares MD Discharge: Date of : 43 Report #: [id number] ECG reveals sinus rhythm. LABORATORY VALUES: Troponins x 3 is negative. White count is 5.9, hemoglobin 13.3, sodium is 136, creatinine is 1.3. AST, ALT is elevated. ASSESSMENT AND PLAN: 1. Syncope, may have been a combination of vasovagal and orthostatic hypotension. She had not eaten in the morning as she had a tooth pulled. CT has been ruled out with serial troponin levels. She has no cardiac symptoms at this time. Plan is to continue with telemetry monitoring. Would also check orthostatic blood pressure readings. 2. Coronary artery disease/coronary artery bypass graft/percutaneous coronary intervention, stable with no symptoms of angina or dyspnea. Continue with aspirin and Plavix. 3. Hypertension. Blood pressure on the low side, hold all medications. 4. Elevated transaminases. Hold on amiodarone. Needs GI evaluation. <ELECTRONICALLY SIGNED> By: Isidro Jefferson MD 11/18/18 1545 [id number] Isidro Jefferson MD /nt
--- NOTE | 2018-11-18 15:48 | 2DMMODE ---
[facility] [place] [address] 2 D/M-MODE ECHOCARDIOGRAM Name: FERNANDO BAIRES MATT Room #: 216-P ADM IN M.R.#: [id number] Admission: 11/17/18 Attend Phys: Vladimir Olivares MD Discharge: Date of : 43 Date of Service: 11/18/18 1547 Report #: [id number] THIS REPORT FOR: //name// APPROVED REPORT Study performed: 11/18/2018 15:16:44 EXAM: Comprehensive 2D, Doppler, and color-flow Echocardiogram Patient Location: Echo lab Room #: [facility] Status: routine BSA: 1.83 HR: 57 bpm BP: 110/43 mmHg Rhythm: NSR Other Information Study Quality: Fair/No apical window Technically limited study due to breast implants, lung disease. Not all measurement/doppler obtainable. Indications Syncope, CAD. Hx: CABG, PCI, PVD, COPD, DM, HTN. 2D Dimensions IVSd: 12.54 (7-11mm) LVOT Diam: 20.64 (18-24mm) LVDd: 42.47 mm PWd: 10.34 (7-11mm) Ascending Ao: 24.93 (22-36mm) LVDs: 26.62 (25-40mm) Aortic Root: 31.20 mm Aortic Valve AoV Peak Elijah.: 1.58 m/s AO Peak Gr.: 10.17 mmHg LVOT Max P.92 mmHg LVOT Max V: 0.85 m/s ANH Vmax: 1.81 cm2 Mitral Valve E/A Ratio: 0.7 MV Decel. Time: 200.48 ms MV E Max Elijah.: 0.57 m/s MV A Elijah.: 0.77 m/s MV PHT: 58.14 ms Pulmonary Valve [facility] [place] [address] 2 D/M-MODE ECHOCARDIOGRAM Name: FERNANDO BAIRES [facility] Room #: 216-P ADM IN M.R.#: [id number] Admission: 11/17/18 Attend Phys: Vladimir Olivares MD Discharge: Date of : 43 Date of Service: 11/18/18 1547 Report #: [id number] PV Peak Elijah.: 0.99 m/s PV Peak Gr.: 3.92 mmHg Tricuspid Valve TR Peak Elijah.: 2.04 m/s RAP Estimate: 5.00 mmHg TR Peak Gr.: 16.70 mmHg PA Pressure: 22.00 mmHg Left Ventricle The left ventricle is normal size. Mild basal septal hypertrophy is present. Left ventricular systolic function is normal. LVEF is 60%. Mild diastolic dysfunction is present (impaired relaxation pattern). Right Ventricle The right ventricle is normal size. The right ventricular systolic function is normal. Atria The left atrium size is normal. The right atrium size is normal. Aortic Valve Aortic valve is moderately calcified but has adequate excursion. No aortic regurgitation is present. Mitral Valve The mitral valve is normal in structure. Trace mitral regurgitation. Tricuspid Valve The tricuspid valve is normal in structure. Mild tricuspid regurgitation. Estimated PAP is 20-25mmHg. Pulmonic Valve The pulmonary valve is normal in structure. Trace pulmonic regurgitation. Great Vessels The aortic root is normal in size. The ascending aorta is normal in size. IVC is normal in size and collapses >50% with inspiration. Pericardium There is no pericardial effusion. <Conclusion> [facility] [address] [place] [address] 2 D/M-MODE ECHOCARDIOGRAM Name: FERNANDO BAIRES Room #: 216-P ADM IN M.R.#: [id number] Admission: 11/17/18 Attend Phys: Vladimir Olivares MD Discharge: Date of : 43 Date of Service: 11/18/18 154 Report #: [id number] The left ventricle is normal size. Left ventricular systolic function is normal. Mild diastolic dysfunction is present (impaired relaxation pattern). The right ventricle is normal size. The left atrium size is normal. Aortic valve is moderately calcified but has adequate excursion. Trace mitral regurgitation. Mild tricuspid regurgitation. Estimated PAP is 20-25mmHg. <ELECTRONICALLY SIGNED> By: Isidro Jefferson MD 11/18/18 1547 1547 1547 Isidro Jefferson MD /SERGEI
--- NOTE | 2018-11-18 19:51 | NUR ---
PT ALERT AND ORIENTED X4 BUT SLIGHTLY FORGETFUL. COMPLAINING OF RIGHT SHOULDER PAIN 10/10. HYDROCODONE GIVEN Q4H. DISCUSSED WITH DR HENDRIX. LIDOCAINE PATCH ORDERED AND ICE PACK APPLIED. PT REPORTS PARTIAL RELIEF OF PAIN. SPOKE WITH PT'S DAUGHTER PAULINA AND UPDATED HER TODAY. PT HAD ECHO TODAY. AMBULATING IN ROOM WITH STANDBY ASSISTANCE AND STEADY GAIT. UP TO BSC FREQUENTLY AND SITTING IN CHAIR MOST OF THE DAY TODAY. ORTHOSTATIC BP'S DONE AND CHARTED. PROGRESSING TOWARDS GOALS PER PLAN OF CARE.
[2018-11-19 00:16] VITALS: BP 146/53
[2018-11-19 04:56] VITALS: BP 156/55
--- NOTE | 2018-11-19 05:34 | NUR ---
ASSUMED PT CARE AT 1900. NO FAMILY AT BEDSIDE. PT IS ALERT AND ORIENTED BUT FORGETFUL. PT RATES PAIN TO RIGHT SHOULER AT 10. PAIN MEDICATION ADMINISTERED REQUESTERED BY PAIN. ASSESSMENT COMPLETED AND CHARTED. VITTAL SIGNS STABLE. SCHEDULED MEDS ADMINISTERED TO PT. PT TOLERATED PO INTAKE. NO FAMILY AT BEDSIDE. FALL PRECAUTION IN PLACE. CONTINUE TO MONITOR. PT IS STABLE.
[2018-11-19 08:56] VITALS: BP 114/80
[2018-11-19] MEDS ORDERED: PERCOCET PO (14:40)
[2018-11-19] MEDS ORDERED: LIDOPATCH1 EACH TRANSDERM (14:40)
[2018-11-19 15:42] VITALS: BP 110/43
--- NOTE | 2018-11-19 16:44 | NUR ---
ORDER RECEIVED FOR PHYSICAL THERAPY. Pt DISCHARGED FROM THE HOSPITAL BEFORE PT EVAL COMPLETED.
--- NOTE | 2018-11-19 16:46 | NUR ---
ASSUMED CARE OF PATIENT TODAY AT 0700. PATIENT IS A&O X 4, HOWEVER CONFUSED AT TIMES AND VERY FORGETFUL. PATIENT YELLING OUT IN PAIN WITH MOVEMENT TO BSC AT SHIFT CHANGE, 1 HR AFTER RECEIVING HYDROCODONE. C/O RIGHT SHOULDER PAIN. PATIENT'S BLOOD SUGAR WAS CHECKED AC&HS. PAIN CONTROLLED WITH ALTERNATING HYDROCODONE AND FENTANYL. OXYCODONE ADDED BY DR. GONZALEZ TODAY AND ABLE TO CONTROL PAIN BETTER THAN HYDROCODONE, FENTANYL WAS NO LONGER USED. THROUGHOUT DAY PATIENT AMBULATED WITH GREATER EASE TO BSC AND STATED THAT SHE FELT SHE COULD RETURN BACK HOME TO ASSISTED LIVING WITHOUT NEEDED TO GO TO SKILL[facility]. PATIENT DENIES ANY MORE FEELING OF DIZZINESS. DISCHARGE PAPERWORK FAXED TO [facility] AND CALL WAS MADE TO LEGAL INTERN. THEIR GOAL IS TO GET HOME HEALTH STARTED TOMORROW. [facility] PHONE NUMBER ALSO GIVEN TO PATIENT FOR FOLLOW UP. CALL WAS PLACED TO NURSE AT [facility] TO NOTIFY THEM OF PATIENT D/C. PATIENT WAS DRIVEN HOME BY HER SISTER AND TAKEN TO THE MAIN ENTRANCE VIA W/C. PATIENT STATES THAT SHE FELT BETTER THAN SHE DID ON ADMISSION. PATIENT URGED TO FOLLOW UP WITH PCP IN REGARDS TO FURTHER TREATMENT OF RIGHT SHOULDER. IV AND TELE REMOVED.
== END 2018-11-19 15:57 | disposition home health service (06) | DRG 605 ==
LOC: ER 18:24 → 2N 22:11 → EROBS 22:11 → 2N 22:46
PROVIDERS: Nurse Practitioner; ADMIT Internal Medicine
DX: S40.011A Contusion of right shoulder, initial encounter (principal); N17.9 Acute kidney failure, unspecified; I48.1 Persistent atrial fibrillation; E11.51 Type 2 diabetes mellitus with diabetic peripheral angiopathy without gangrene; F32.9 Major depressive disorder, single episode, unspecified; J44.9 Chronic obstructive pulmonary disease, unspecified; E11.22 Type 2 diabetes mellitus with diabetic chronic kidney disease; N18.3 Chronic kidney disease, stage 3 (moderate); I12.9 Hypertensive chronic kidney disease with stage 1 through stage 4 chronic kidney disease, or unspecified chronic kidney disease; E78.00 Pure hypercholesterolemia, unspecified; I10 Essential (primary) hypertension; M81.0 Age-related osteoporosis without current pathological fracture; F03.90 Unspecified dementia, unspecified severity, without behavioral disturbance, psychotic disturbance, mood disturbance, and anxiety; W18.39XA Other fall on same level, initial encounter; F41.9 Anxiety disorder, unspecified; E78.5 Hyperlipidemia, unspecified; K59.00 Constipation, unspecified; Z86.73 Personal history of transient ischemic attack (TIA), and cerebral infarction without residual deficits; Z95.1 Presence of aortocoronary bypass graft; Z79.84 Long term (current) use of oral hypoglycemic drugs; Z79.82 Long term (current) use of aspirin; Z88.5 Allergy status to narcotic agent; Z88.7 Allergy status to serum and vaccine; Z95.5 Presence of coronary angioplasty implant and graft; Z82.49 Family history of ischemic heart disease and other diseases of the circulatory system; Z87.891 Personal history of nicotine dependence; Z90.710 Acquired absence of both cervix and uterus; Z90.10 Acquired absence of unspecified breast and nipple; Y93.89 Activity, other specified; Y92.89 Other specified places as the place of occurrence of the external cause; Y99.8 Other external cause status; Z95.820 Peripheral vascular angioplasty status with implants and grafts
CPT/HCPCS: 10081

== ENCOUNTER 2019-01-12 15:58 | Emergency (ER) | payer OTHER ==
[~2019-01-12] VITALS: Ht 162.6 cm; Wt 77.1 kg
[~2019-01-12 15:58] MED LIST changes: +ALPRAZOLAM 0.0.25 M1 PO; +BONIVA150 MG PO; +CITRACAL SOFT1 EACH PO; +CYCLOBENZAPRINE5 MG PO; +GLUCAGON EMERGEN1 MG IM; +LIDOPATCH1 EACH TRANSDERM; +PERCOCET PO; +VITAMIN D250000 UNIT PO
[2019-01-12] MEDS ORDERED: MOBIC15 MG PO (17:12)
[2019-01-12] MEDS ORDERED: NORFLEX100 MG PO (17:12)
[2019-01-12 17:42] VITALS: BP 116/43
== END 2019-01-12 17:44 ==
LOC: ER 15:58
DX: S29.012A Strain of muscle and tendon of back wall of thorax, initial encounter (principal); E11.22 Type 2 diabetes mellitus with diabetic chronic kidney disease; N18.3 Chronic kidney disease, stage 3 (moderate); I48.91 Unspecified atrial fibrillation; F32.9 Major depressive disorder, single episode, unspecified; F41.9 Anxiety disorder, unspecified; F03.90 Unspecified dementia, unspecified severity, without behavioral disturbance, psychotic disturbance, mood disturbance, and anxiety; E78.5 Hyperlipidemia, unspecified; I25.10 Atherosclerotic heart disease of native coronary artery without angina pectoris; Z98.890 Other specified postprocedural states; Z86.73 Personal history of transient ischemic attack (TIA), and cerebral infarction without residual deficits; Z79.4 Long term (current) use of insulin; Z88.5 Allergy status to narcotic agent; Z91.048 Other nonmedicinal substance allergy status; Z88.7 Allergy status to serum and vaccine; X50.0XXA Overexertion from strenuous movement or load, initial encounter; Y92.89 Other specified places as the place of occurrence of the external cause; Y93.89 Activity, other specified; Y99.8 Other external cause status

== ENCOUNTER 2020-09-12 18:51 | Emergency (ER) | payer OTHER ==
[~2020-09-12] VITALS: Ht 162.6 cm; Wt 77.1 kg
--- NOTE | ~2020-09-12 | EMS ---
[address] [address] EMS Patient Care Report Name: FERNANDO BAIRES Room #: REG JAIRON Saravia#: [id number] Admission: 09/12/20 Attend Phys: Discharge: Date of : 44 Report #: [id number] THIS REPORT FOR: //name// Report Transmitted: 09/12/2020 18:22 EMS Care Summary [facility] MED-ACT Incident [id number] @ 09/12/2020 18:10 Incident Location [address] [place] [address] Patient FERNNADO BAIRES Female, 75 Years 1945 Patient Address [address] [place] [address] Patient History Chronic Ischemic Heart Disease,Dementia,Stroke/CVA,Type 1 Diabetes, Patient Allergies Tetanus Toxoid Vaccine, Patient Medications ASA, Losartan, Furosemide, Clopidogrel, Chief Complaint hypoglycemia Disposition Transported No Lights/[place] Reason Diabetic Problem Transported To [facility] Narrative Upon arrival t was sitting on a chair, shaking, presented w/o distress. RN reported pt hx of diabetes type I. Pt initial bg was 50 mgdl. Pt had sandwich [address] [address] EMS Patient Care Report Name: FERNANDO BAIRES Room #: REG JAIRON Saravia#: [id number] Admission: 09/12/20 Attend Phys: Discharge: Date of : 43 Report #: [id number] and juice prior ems arrival. RN reported pt sweating and shaking which was not her normal. Daughter who was over the phone listing to the conversation and the DPOA for the pt. RN reported she did not feel comfortable to let the pt stay at the facility. Pt stated she felt cold. Pt bg upon arrival was 98 mgdl. RN reported that was not normal for the pt. Pt was A&O x2 place and person, pt had hx of dementia. Daughter stated she wanted pt to be evaluated by ED doctor. Pt stood and sat on the stretcher w/o difficulty and the pt moved to the unit. In the unit, Pt vitals were monitored and remained stable during transport. Pt bg prior transport was 168 mgdl. Pt vitals were monitored and remained stable during transport. At the hospital, pt moved herself laterally to the assigned bed w/o difficulty and then pt care turned over ED nurse. Initial Vitals @18:33P: 68,SpO2: 100, @18:23P: 259,SpO2: 98, @18:38P: 72,R: 18,BP: 158/71,Pain: 0/10,Glucose: 168,SpO2: 95, @18:19P: 67,R: 18,BP: 147/61,Pain: 0/10,GCS: 14,Temp: 98.1F,Glucose: 98,SpO2: 98,Revised Trauma: 12,IL Suspected: false Assessments @18:26MENTAL:Person Oriented,Time Oriented,Place Oriented,Event Oriented,SKIN:HEENT:Head/Face: No Abnormalities,Neck/Airway: No Abnormalities,LUNG SOUNDS:ABDOMEN:PELVIS//GI:EXTREMITIES:Left Arm: No Abnormalities,Right Arm: No Abnormalities,PULSE:NEURO:No Abnormalities, Impression Diabetic Hypoglycemia Timeline 18:09,Call Received 18:09,Psap Call 18:10,Dispatched 18:11,En Route 18:15,On Scene 18:16,At Patient 18:19,BP: 147/61 M,PULSE: 67,RR: 18 R,SPO2: 98 Ox,ETCO2: ,B,PAIN: 0,GCS: 14, 18:23,BP: / M,PULSE: 259,RR: R,SPO2: 98 Ox,ETCO2: ,BG: ,PAIN: ,GCS: , 18:33,BP: / M,PULSE: 68,RR: R,SPO2: 100 Ox,ETCO2: ,BG: ,PAIN: ,GCS: , 18:37,Depart Scene 18:38,BP: 158/71 M,PULSE: 72,RR: 18 R,SPO2: 95 Ox,ETCO2: ,B,PAIN: 0,GCS: , 18:46,At Destination 19:14,Call Closed [facility] [address] [place] [address] EMS Patient Care Report Name: FERNANDO BAIRES Room #: REG JAIRON Saravia#: [id number] Admission: 09/12/20 Attend Phys: Discharge: Date of : 43 Report #: [id number] Disclaimer v1.1 Copyright 2020 [employer] This EMS Care Summary contains data elements from the applicable legal record (which may be displayed differently). It is designed to provide pertinent information for the following purposes: continuity of care, clinical quality, and state data reporting. The complete legal record is available to ED staff and administrators of the receiving hospital in [employer] Patient Tracker. All data is provided "as is."
[~2020-09-12 18:51] MED LIST changes: +MOBIC15 MG PO; +NORFLEX100 MG PO
[2020-09-12 20:40] LABS: ABSOLUTE NEUTROPHILS 4.1 thou/uL (1.4-8.2); BASOPHILS 0.9 % (0.0-2.0); EOSINOPHILS 0.3 % (0.0-3.0); HEMATOCRIT 34.6 % (37.0-47.0); HEMOGLOBIN 11.2 gm/dL (12.0-15.0); LYMPHOCYTES 12.3 % (24.0-44.0); MCH 27.9 pg (26.0-34.0); MCHC 32.5 g/dL (28.0-37.0); MONOCYTES 5.9 % (1.0-8.0); PLATELET COUNT 245 thou/uL (150-400); POLYS 80.6 % (36.0-66.0); RBC 4.03 mil/uL (4.20-5.00); RDW 14.9 % (10.5-14.5); WBC 5.1 thou/uL (4.0-11.0)
[2020-09-12 20:54] LABS: CALCIUM 8.4 mg/dL (8.5-10.1); CREATININE 1.3 mg/dL (0.6-1.0)
[2020-09-12 21:07] LABS: ALBUMIN 3.4 g/dL (3.4-5.0); TOTAL BILIRUBIN 0.3 mg/dL (0.2-1.0)
[2020-09-12 21:38] LABS: URINE BILIRUBIN NEGATIVE (Negative); URINE BLOOD NEGATIVE (Negative); URINE CLARITY CLEAR; URINE COLOR YELLOW; URINE GLUCOSE-RANDOM* 3+ (Negative); URINE KETONES NEGATIVE (Negative); URINE LEUKOCYTES-REFLEX NEGATIVE (Negative); URINE NITRITE-REFLEX NEGATIVE (Negative); URINE PROTEIN (DIPSTICK) NEGATIVE (Negative); URINE UROBILINOGEN 0.2 E.U./dl (0.2-1.0)
[2020-09-12 22:00] VITALS: BP 139/52
--- NOTE | 2020-09-13 07:31 | EKG ---
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
== END 2020-09-12 22:10 | disposition home or self-care (01) ==
LOC: ER 18:51
PROVIDERS: Emergency Medicine
DX: E10.649 Type 1 diabetes mellitus with hypoglycemia without coma (principal); I48.91 Unspecified atrial fibrillation; E10.22 Type 1 diabetes mellitus with diabetic chronic kidney disease; N18.30 Chronic kidney disease, stage 3 unspecified; Z95.1 Presence of aortocoronary bypass graft; Z88.5 Allergy status to narcotic agent; Z88.7 Allergy status to serum and vaccine

== ENCOUNTER 2020-09-13 21:51 | Inpatient (IN) | payer OTHER ==
[~2020-09-13] VITALS: Ht 162.6 cm; Wt 107.0 kg
--- NOTE | ~2020-09-13 | EMS ---
[address] [address] EMS Patient Care Report Name: FERNANDO BAIRES Room #: 353-P [facility] IN M.R.#: [id number] Admission: 09/13/20 Attend Phys: Josh Leggett MD Discharge: 09/15/20 Date of : 43 Report #: [id number] THIS REPORT FOR: //name// Report Transmitted: 09/17/2020 10:01 EMS Care Summary [facility] MED-ACT Incident [id number] @ 09/13/2020 21:10 Incident Location [address] [place] [address] Patient FERNANDO BAIRES Female, 75 Years 1945 Patient Address [address] [place] [address] Patient History Chronic Ischemic Heart Disease,Dementia,Stroke/CVA,Type 1 Diabetes, Patient Allergies Tetanus Toxoid Vaccine, Patient Medications Levemir, ASA, Furosemide, Losartan, Clopidogrel, Chief Complaint "Her blood sugar is low" Disposition Transported No Lights/[place] Dis[place] Reason Diabetic Problem Transported To [facility] Narrative [id number] responded emergent to [facility] for a female report to have low blood sugar. [id number] arrived on scene to find the pt laying supine in [facility] [address] [place] [address] EMS Patient Care Report Name: FERNANDO BAIRES Room #: 353-P DIS IN Manjit#: [id number] Admission: 09/13/20 Attend Phys: Josh Leggett MD Discharge: 09/15/20 Date of : 44 Report #: [id number] bed, eyes open but not responding to verbal stimuli. Pt withdraws from pain. Staff is at her side. Staff states she came earlier today and gave the pt her prescribed Levemir. The night nurse came in around 2099 and noted the pt was not responding normally. They checked the pt's BG and noted it to be low and administered 1mg Glucagon (at approximately 2109) prior to calling EMS. Staff reports pt was transported by ambulance yesterday evening as well for low blood sugar and also was administered Glucagon at that time. Pt is combative in attempts to obtain initial vitals and an IV. Pt has no vascular access and staff reports that the hospital had to use an ultrasound machine to obtain vascular access. EMS re checks BG and it reads low. Decision is made to move pt to cot and expedite transport rather than attempt another IV on scene. Pt is moved from bed to cot and secured via 5 point seatbelt. Pt SPO2 is noted to be in low 90s. ETCO2 [place] is applied for monitoring and NRB @ 15LPM is applied as pt is mouth breathing. Pt is transported with 2 paramedics in back. A 2nd IV attempt is made with no success. Another BG check again shows low. Cpt Rivero calls [facility] requesting to speak with a physician. Cpt Rivero relays that staff administered 1mg Glucagon prior to EMS arrival and pt has shown no improvement. Due to EMS being unable to establish IV for Dextrose, Cpt Rivero requests an additional 1mg Glucagon. Dr Ramirez gives verbal orders for EMS to administer 1mg Glucagon. 2nd dose of Glucagon had no positive effect on the pt and BG remains low. Upon arrival at hospital, pt no longer responds to painful stimuli and is unresponsive. Pt to room, report given to RN and pt moved via sheet without incident. Initial Vitals @21:35P: 86,SpO2: 93, @21:20P: 89,SpO2: 90, @21:35P: 92,R: 20,Glucose: -1,EtCO2: 0,SpO2: 98, @21:46P: 77,R: 24,BP: 200/145,GCS: 3,EtCO2: 35,SpO2: 98,Revised Trauma: 8, @21:40P: 98,R: 21,BP: 207/77,GCS: 9,Glucose: -1,EtCO2: 38,SpO2: 96,Revised Trauma: 11, @21:21P: 94,R: 16,BP: 193/63,GCS: 9,Temp: 96F,Glucose: -1,SpO2: 90,Revised Trauma: 11, Assessments @21:18MENTAL:Combative,Unresponsive,SKIN:Diaphoresis,HEENT:LUNG SOUNDS:ABDOMEN:PELVIS//GI:EXTREMITIES:PULSE:NEURO: [address] [address] EMS Patient Care Report Name: FERNANDO BAIRES Room #: 353-P [facility] IN M.R.#: [id number] Admission: 09/13/20 Attend Phys: Josh Leggett MD Discharge: 09/15/20 Date of : 43 Report #: [id number] Impression Diabetic Hypoglycemia Procedures @21:3512-Lead ECGResponse: UnchangedSucceeded@21:45Glucagon - 1 Milligrams (mg) - Intramuscular (IM)Response: Unchanged@21:40Saline Lock cc (24 ga) Site: Hand-RightResponse: UnchangedFailed@21:20Saline Lock cc (24 ga) Site: Hand-LeftResponse: UnchangedFailed@PTAGlucagon - 1 Milligrams (mg) - Intramuscular (IM)Response: Unchanged@21:30Oxygen FlowRate: 15 Device: Non Re-breather Mask (NRB) Response: ImprovedSucceeded Timeline VISION REHABILITATION THERAPIST,Glucagon - 1 Milligrams (mg) - Intramuscular (IM),Response: Unchanged 21:09,Call Received 21:09,Psap Call 21:10,Dispatched 21:11,En Route 21:14,On Scene 21:17,At Patient 21:20,Saline Lock cc 24 ga Site: Hand-Left,Response: UnchangedFailed, 21:20,BP: / M,PULSE: 89,RR: R,SPO2: 90 Ox,ETCO2: ,BG: ,PAIN: ,GCS: , 21:21,BP: 193/63 M,PULSE: 94,RR: 16 R,SPO2: 90 Ox,ETCO2: ,BG: -1,PAIN: ,GCS: 9, 21:30,Oxygen FlowRate: 15 Device: Non Re-breather Mask (NRB) Response: ImprovedSucceeded, 21:35,12-Lead ECG,Response: UnchangedSucceeded, 21:35,BP: / M,PULSE: 86,RR: R,SPO2: 93 Ox,ETCO2: ,BG: ,PAIN: ,GCS: , 21:35,BP: / M,PULSE: 92,RR: 20 R,SPO2: 98 Ox,ETCO2: 0 ,BG: -1,PAIN: ,GCS: , 21:37,Depart Scene 21:40,Saline Lock cc 24 ga Site: Hand-Right,Response: UnchangedFailed, 21:40,BP: 207/77 M,PULSE: 98,RR: 21 R,SPO2: 96 Ox,ETCO2: 38 ,BG: -1,PAIN: ,GCS: 9, 21:45,Glucagon - 1 Milligrams (mg) - Intramuscular (IM),Response: Unchanged 21:46,BP: 200/145 M,PULSE: 77,RR: 24 R,SPO2: 98 Ox,ETCO2: 35 ,BG: ,PAIN: ,GCS: 3, 21:46,At Destination 22:12,Call Closed Disclaimer v1.1 Copyright 2020 [email or web address] This EMS Care Summary contains data elements from the applicable legal record (which may be displayed differently). It is designed to provide pertinent information for the following purposes: continuity of care, clinical quality, and state data reporting. The complete legal record is available to ED staff and administrators of the receiving hospital in [employer] Patient Tracker. All data is provided "as is."
--- NOTE | ~2020-09-13 | EMS ---
[address] [address] EMS Patient Care Report Name: FERNANDO BAIRES Room #: REG JAIRON Saravia#: [id number] Admission: 09/13/20 Attend Phys: Discharge: Date of : 43 Report #: [id number] THIS REPORT FOR: //name// Report Transmitted: 09/13/2020 21:33 EMS Care Summary [facility] MED-ACT Incident [id number] @ 09/13/2020 21:10 Incident Location [address] [place] [address] Patient FERNANDO BAIRES Female, 75 Years 1945 Patient Address [address] [place] [address] Patient History Chronic Ischemic Heart Disease,Dementia,Stroke/CVA,Type 1 Diabetes, Patient Allergies Tetanus Toxoid Vaccine, Patient Medications Levemir, ASA, Furosemide, Losartan, Clopidogrel, Chief Complaint "Her blood sugar is low" Disposition Transported No Lights/Felda Dispatch Reason Diabetic Problem Transported To [facility] Narrative [id number] responded emergent to [facility] for a female report to have low blood sugar. [id number] arrived on scene to find the pt laying supine in [address] [address] EMS Patient Care Report Name: FERNANDO BAIRES Room #: REG JAIRON Saravia#: [id number] Admission: 09/13/20 Attend Phys: Discharge: Date of : 43 Report #: [id number] bed, eyes open but not responding to verbal stimuli. Pt withdraws from pain. Staff is at her side. Staff states she came earlier today and gave the pt her prescribed Levemir. The night nurse came in around 2100 and noted the pt was not responding normally. They checked the pt's BG and noted it to be low and administered 1mg Glucagon (at approximately 0) prior to calling EMS. Staff reports pt was transported by ambulance yesterday evening as well for low blood sugar and also was administered Glucagon at that time. Pt is combative in attempts to obtain initial vitals and an IV. Pt has no vascular access and staff reports that the hospital had to use an ultrasound machine to obtain vascular access. EMS re checks BG and it reads low. Decision is made to move pt to cot and expedite transport rather than attempt another IV on scene. Pt is moved from bed to cot and secured via 5 point seatbelt. Pt SPO2 is noted to be in low 90s. ETCO2 NC is applied for monitoring and NRB @ 15LPM is applied as pt is mouth breathing. Pt is transported with 2 paramedics in back. A 2nd IV attempt is made with no success. Another BG check again shows low. Cpt Rivero calls [facility] requesting to speak with a physician. Cpt Rivero relays that staff administered 1mg Glucagon prior to EMS arrival and pt has shown no improvement. Due to EMS being unable to establish IV for Dextrose, Cpt Rivero requests an additional 1mg Glucagon. Dr Ramirez gives verbal orders for EMS to administer 1mg Glucagon. 2nd dose of Glucagon had no positive effect on the pt and BG remains low. Upon arrival at hospital, pt no longer responds to painful stimuli and is unresponsive. Pt to room, report given to RN and pt moved via sheet without incident. Initial Vitals @21:35P: 86,SpO2: 93, @21:20P: 89,SpO2: 90, @21:35P: 92,R: 20,Glucose: -1,EtCO2: 0,SpO2: 98, @21:46P: 77,R: 24,BP: 200/145,GCS: 3,EtCO2: 35,SpO2: 98,Revised Trauma: 8, @21:40P: 98,R: 21,BP: 207/77,GCS: 9,Glucose: -1,EtCO2: 38,SpO2: 96,Revised Trauma: 11, @21:21P: 94,R: 16,BP: 193/63,GCS: 9,Temp: 96F,Glucose: -1,SpO2: 90,Revised Trauma: 11, Assessments @21:18MENTAL:Combative,Unresponsive,SKIN:Diaphoresis,HEENT:LUNG SOUNDS:ABDOMEN:PELVIS//GI:EXTREMITIES:PULSE:NEURO: [address] [address] EMS Patient Care Report Name: FERNANDO BAIRES Room #: REG JAIRON Saravia#: [id number] Admission: 09/13/20 Attend Phys: Discharge: Date of : 43 Report #: [id number] Impression Diabetic Hypoglycemia Procedures @21:3512-Lead ECGResponse: UnchangedSucceeded@21:45Glucagon - 1 Milligrams (mg) - Intramuscular (IM)Response: Unchanged@21:40Saline Lock cc (24 ga) Site: Hand-RightResponse: UnchangedFailed@21:20Saline Lock cc (24 ga) Site: Hand-LeftResponse: UnchangedFailed@PTAGlucagon - 1 Milligrams (mg) - Intramuscular (IM)Response: Unchanged@21:30Oxygen FlowRate: 15 Device: Non Re-breather Mask (NRB) Response: ImprovedSucceeded 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,Glucagon - 1 Milligrams (mg) - Intramuscular (IM),Response: Unchanged 21:09,Call Received 21:09,Psap Call 21:10,Dispatched 21:11,En Route 21:14,On Scene 21:17,At Patient 21:20,Saline Lock cc 24 ga Site: Hand-Left,Response: UnchangedFailed, 21:20,BP: / M,PULSE: 89,RR: R,SPO2: 90 Ox,ETCO2: ,BG: ,PAIN: ,GCS: , 21:21,BP: 193/63 M,PULSE: 94,RR: 16 R,SPO2: 90 Ox,ETCO2: ,BG: -1,PAIN: ,GCS: 9, 21:30,Oxygen FlowRate: 15 Device: Non Re-breather Mask (NRB) Response: ImprovedSucceeded, 21:35,12-Lead ECG,Response: UnchangedSucceeded, 21:35,BP: / M,PULSE: 86,RR: R,SPO2: 93 Ox,ETCO2: ,BG: ,PAIN: ,GCS: , 21:35,BP: / M,PULSE: 92,RR: 20 R,SPO2: 98 Ox,ETCO2: 0 ,BG: -1,PAIN: ,GCS: , 21:37,Depart Scene 21:40,Saline Lock cc 24 ga Site: Hand-Right,Response: UnchangedFailed, 21:40,BP: 207/77 M,PULSE: 98,RR: 21 R,SPO2: 96 Ox,ETCO2: 38 ,BG: -1,PAIN: ,GCS: 9, 21:45,Glucagon - 1 Milligrams (mg) - Intramuscular (IM),Response: Unchanged 21:46,BP: 200/145 M,PULSE: 77,RR: 24 R,SPO2: 98 Ox,ETCO2: 35 ,BG: ,PAIN: ,GCS: 3, 21:46,At Destination 22:12,Call Closed Disclaimer v1.1 Copyright 2020 [employer] This EMS Care Summary contains data elements from the applicable legal record (which may be displayed differently). It is designed to provide pertinent information for the following purposes: continuity of care, clinical quality, and state data reporting. The complete legal record is available to ED staff and administrators of the receiving hospital in [employer] Patient Tracker. All data is provided "as is."
[2020-09-13 21:53] VITALS: BP 114/84
[2020-09-13 22:06] LABS: ABSOLUTE NEUTROPHILS 4.9 thou/uL (1.4-8.2); BASOPHILS 0.9 % (0.0-2.0); HEMATOCRIT 36.6 % (37.0-47.0); LYMPHOCYTES 31.9 % (24.0-44.0); MCH 27.8 pg (26.0-34.0); MCHC 32.8 g/dL (28.0-37.0); MCV 84.7 fL (80.0-100.0); MONOCYTES 11.7 % (1.0-8.0); POLYS 51.5 % (36.0-66.0); RBC 4.32 mil/uL (4.20-5.00); WBC 9.4 thou/uL (4.0-11.0)
[2020-09-13 22:10] LABS: PLATELET COUNT 330 thou/uL (150-400)
[2020-09-13 22:16] LABS: ALBUMIN 3.8 g/dL (3.4-5.0); CALCIUM 8.8 mg/dL (8.5-10.1); CREATININE 1.4 mg/dL (0.6-1.0); TOTAL BILIRUBIN 0.2 mg/dL (0.2-1.0); TOTAL PROTEIN 7.6 g/dL (6.4-8.2)
[2020-09-13 22:20] LABS: POTASSIUM 2.7 mmol/L (3.5-5.1)
[2020-09-13 23:54] VITALS: BP 133/49
[2020-09-14] VITALS (7 sets, daily range): BP systolic 127–161; BP diastolic 42–69
[2020-09-14 01:10] LABS: URINE BILIRUBIN NEGATIVE (Negative); URINE BLOOD NEGATIVE (Negative); URINE CLARITY CLEAR; URINE COLOR YELLOW; URINE GLUCOSE-RANDOM* 2+ (Negative); URINE KETONES NEGATIVE (Negative); URINE LEUKOCYTES-REFLEX NEGATIVE (Negative); URINE NITRITE-REFLEX NEGATIVE (Negative); URINE PROTEIN (DIPSTICK) 1+ (Negative); URINE SPECIFIC GRAVITY 1.025 (1.005-1.035); URINE UROBILINOGEN 0.2 E.U./dl (0.2-1.0)
[2020-09-14 01:23] LABS: BACTERIA-REFLEX 1-9 Few /HPF (None Seen); CRYSTALS None Seen /LPF (None Seen); HYALINE CASTS 0-3 Few /LPF (None Seen); MUCUS 0-3 Light strn/LPF (None Seen); SQUAMOUS 0-3 Few /LPF (0-3); URINE RBC 1-2 Rare /HPF (NONE SEEN); URINE WBC-REFLEX 0-5 Rare /HPF (0-5)
--- NOTE | 2020-09-14 07:16 | NUR ---
PT ARRIVED FROM ER. ADMISSION COMPLETED, CARE PLAN UPDATED AND INTERVENTIONS CLEANED UP. MED REC WAS A LONG LIST. SPOKE TO PT DAUGHTER. SHE SAID ASSISTED LIVING GIVES 20+U OF INSULIN AM AND PM. PT STATES SHE IS NOT EATING A LOT ALSO. PT UP WITH SBA. FOR LONG DISTANCE PT USES WALKER. SPOT CHECK ON BS AT 0300 BS WAS 130. IVF GTT PER POC.
[2020-09-14 09:41] LABS: CALCIUM 8.3 mg/dL (8.5-10.1); CREATININE 1.1 mg/dL (0.6-1.0)
--- NOTE | 2020-09-14 17:17 | NUR ---
ASSUMED PATIENT CARE AT 0700. A/O X2. FORGETFUL. ANBULATED IN ROOM. SLOWLY TOWARDS POC GOALS.
[2020-09-15 03:43] VITALS: BP 112/58
--- NOTE | 2020-09-15 04:40 | NUR ---
Patient making progress towards outcome goals. Vital signs and rhythm stable. No signs of hypoglycemia. Patient has dementia and is forgetful with periods of loud angry outbursts. High fall risk but refuses bed alarm on. Gait steady.
[2020-09-15 05:09] LABS: HEMATOCRIT 36.8 % (37.0-47.0); MCH 27.6 pg (26.0-34.0); MCHC 32.5 g/dL (28.0-37.0); MCV 85.2 fL (80.0-100.0); RBC 4.33 mil/uL (4.20-5.00); RDW 15.3 % (10.5-14.5); WBC 5.7 thou/uL (4.0-11.0)
[2020-09-15 05:38] LABS: CALCIUM 8.5 mg/dL (8.5-10.1); CREATININE 1.1 mg/dL (0.6-1.0); POTASSIUM 3.4 mmol/L (3.5-5.1)
[2020-09-15 07:09] VITALS: BP 188/68
[2020-09-15 07:21] VITALS: BP 133/63
[2020-09-15 11:25] VITALS: BP 137/54
[2020-09-15] MEDS ORDERED: NOVOLOG100 UNIT/1 SUBQ ×2 (13:10)
[2020-09-15] MEDS ORDERED: LEVEMIR100 UNIT/1 SUBQ ×2 (13:11→13:14)
[2020-09-15 13:29] VITALS: BP 137/54
--- NOTE | 2020-09-15 13:47 | NUR ---
assumed care of pt at 0700. pt alert and oriented to self and situation. pleasant. blood sugars stable. ok for discharge. discussed follow up appointments and medication adjustments with daughter. waiting on family for transport.
== END 2020-09-15 15:25 | disposition home or self-care (01) | DRG 637 ==
LOC: ER 21:51 → EROBS 23:00 → 3W 23:00
PROVIDERS: Hospitalist; Nurse Practitioner; Nurse Practitioner Family; ADMIT Hospitalist; ATTEND Hospitalist
DX: E11.649 Type 2 diabetes mellitus with hypoglycemia without coma (principal); G93.41 Metabolic encephalopathy; I48.91 Unspecified atrial fibrillation; I25.10 Atherosclerotic heart disease of native coronary artery without angina pectoris; F32.9 Major depressive disorder, single episode, unspecified; E78.5 Hyperlipidemia, unspecified; F41.9 Anxiety disorder, unspecified; E87.6 Hypokalemia; N18.30 Chronic kidney disease, stage 3 unspecified; K21.9 Gastro-esophageal reflux disease without esophagitis; F03.90 Unspecified dementia, unspecified severity, without behavioral disturbance, psychotic disturbance, mood disturbance, and anxiety; E11.22 Type 2 diabetes mellitus with diabetic chronic kidney disease; Z95.1 Presence of aortocoronary bypass graft; Z79.01 Long term (current) use of anticoagulants; Z95.5 Presence of coronary angioplasty implant and graft; Z79.82 Long term (current) use of aspirin; Z79.899 Other long term (current) drug therapy; Z79.4 Long term (current) use of insulin; Z88.5 Allergy status to narcotic agent; Z88.7 Allergy status to serum and vaccine; Z91.09 Other allergy status, other than to drugs and biological substances; Z87.891 Personal history of nicotine dependence
CPT/HCPCS: 10879